=== PATIENT | male | born 1975 | race Caucasian/White ===

== ENCOUNTER 2022-02-23 07:31 | Outpatient (CLI) | payer OTHER ==
[~2022-02-23 07:31] MED LIST: ALLEGRA ALLERG180 MG PO; GILTUSS TR TAB1 EACH PO; ZITHROMAX500 MG PO; ZYRTEC10 MG PO
== END 2022-02-23 07:38 | disposition home or self-care (01) ==
LOC: RAD 07:31
PROVIDERS: ATTEND General Practice
DX: M19.90 Unspecified osteoarthritis, unspecified site (principal)